=== PATIENT | male | born 1970 | race Two or more races ===

== ENCOUNTER 2024-06-07 19:24 | Emergency (ER) | payer OTHER ==
[~2024-06-07] VITALS: Ht 180.3 cm; Wt 90.9 kg
[2024-06-07 19:26] VITALS: BP 122/80; PULSE 96
[2024-06-07 19:38] VITALS: RESP 20; O2SAT 100
[2024-06-07] MEDS ORDERED: GLUCAGON EMERG KIT 1mg/1ml IM ONE (19:45)
== END 2024-06-07 19:38 | disposition left against medical advice (07) ==
LOC: ER 19:24
DX: R07.0 Pain in throat (principal); R06.02 Shortness of breath; Z53.21 Procedure and treatment not carried out due to patient leaving prior to being seen by health care provider